=== PATIENT | female | born 1960 | race Caucasian/White ===

== ENCOUNTER → 2019-01-19 | Outpatient (CLI) | payer BC ==
--- NOTE | 2019-01-22 08:36 | BD ---
EXAMINATION TYPE: Axial Bone Density DATE OF EXAM: 01/19/2019 COMPARISON: NONE CLINICAL HISTORY: Postmenopausal female Height: 65.5 Weight: 144.4 FRAX RISK QUESTIONS: Alcohol (3 or more units per day): no Family History (Parent hip fracture): no Glucocorticoids (More than 3mos): no (Ex: prednisone, prednisolone, methylprednisolone, dexamethasone, and hydrocortisone). History of Fracture in Adulthood: yes Secondary Osteoporosis: 1. Type 1 Diabetes: no 2. Hyperthyroidism: no 3. Menopause before 45: no 4. Malnutrition: no 5. Chronic liver disease: no Rheumatoid Arthritis: no Current Tobacco Use: yes RISK FACTORS HISTORY OF: Family History of Osteoporosis: no Active: yes Diet low in dairy products/other sources of calcium: no Postmenopausal woman: 46 MEDICATIONS: Lipitor, lisinopril, Additional History: EXAM MEASUREMENTS: Bone mineral densitometry was performed using the [employer] System. Bone mineral density as measured about the Lumbar spine is: ----- L1-L4(G/cm2): 1.001 T Score Values are as follows: ----- L2: -2.9 ----- L3: -1.3 ----- L4: -0.1 ----- L1-L4: -1.5 Bone mineral density : baseline Bone mineral density about the R hip (g/cm2): 0.767 Bone mineral density about the L hip (g/cm2): 0.752 T Score values are as follows: -----R Neck: -2.0 -----L Neck: -2.1 -----R Total: -1.5 -----L Total: -1.4 Bone mineral density : baseline IMPRESSION: Osteopenia (T Score between -2.5 and -1). There is slightly increased risk of fracture and the patient may be considered for treatment. Re-Screen 2-5 years. NOTE: T-SCORE=SD OF THE YOUNG ADULT MEAN.
--- NOTE | 2019-01-23 10:56 | MM ---
Reason for exam: screening (asymptomatic). Last mammogram was performed 5 years and 7 months ago. History: Patient is postmenopausal. Physical Findings: A clinical breast exam by your physician is recommended on an annual basis and results should be correlated with mammographic findings. MG Screening Mammo w CAD Bilateral CC and MLO view(s) were taken. Prior study comparison: June 14, 2013, bilateral digital screening mammo w/CAD. September 09, 2003, left breast special view mammogram. The breast tissue is heterogeneously dense. This may lower the sensitivity of mammography. No suspicious abnormality. No significant changes when compared with prior studies. ASSESSMENT: Negative, BI-RAD 1 RECOMMENDATION: Routine screening mammogram of both breasts in 1 year.
== END ==
LOC: RADMAMWWP 15:01
PROVIDERS: ATTEND Family Medicine
DX: Z12.31 Encounter for screening mammogram for malignant neoplasm of breast (principal); M85.80 Other specified disorders of bone density and structure, unspecified site; N95.1 Menopausal and female climacteric states; Z80.3 Family history of malignant neoplasm of breast
CPT/HCPCS: 77067; 77080

== ENCOUNTER → 2021-01-23 | Outpatient (CLI) | payer BC ==
--- NOTE | 2021-01-23 14:40 | BD ---
EXAMINATION TYPE: Axial Bone Density DATE OF EXAM: 01/23/2021 COMPARISON: 01/19/2019 CLINICAL HISTORY: Height: 64.5 IN Weight: 137 LBS FRAX RISK QUESTIONS: Current Tobacco Use: YES RISK FACTORS HISTORY OF: Active: YES Diet low in dairy products/other sources of calcium: YES Postmenopausal woman: AGE 49 MEDICATIONS: Additional Medications: CALCIUM, VIT D, LISINOPRIL,ASPIRIN, MULTI VIT, VIT C, RED RICE YEAST, MAGNESI UM, PROBIOTIC, MORE X OIL EXAM MEASUREMENTS: Bone mineral densitometry was performed using the [employer] System. Bone mineral density as measured about the Lumbar spine is: ----- L1-L4(G/cm2): 0.968 T Score Values are as follows: ----- L2: -3.0 ----- L3: -1.6 ----- L4: -0.7 ----- L1-L4: -1.8 Bone mineral density has: Decreased -3.9% since study of: 01/19/2019 Bone mineral density about the R hip (g/cm2): 0.696 Bone mineral density about the L hip (g/cm2): 0.709 T Score values are as follows: -----R Neck: -2.5 -----L Neck: -2.4 -----R Total: -1.9 -----L Total: -1.8 Bone mineral density has: Decreased -6.3% since study of: 01/19/2019 IMPRESSION: Osteopenia (T Score between -2.5 and -1). There is slightly increased risk of fracture and the patient may be considered for treatment. Re-Screen 2-5 years. NOTE: T-SCORE=SD OF THE YOUNG ADULT MEAN.
== END | disposition home or self-care (01) ==
LOC: RADBDWWP 09:12
PROVIDERS: ATTEND Family Medicine
DX: Z12.31 Encounter for screening mammogram for malignant neoplasm of breast (principal); M85.80 Other specified disorders of bone density and structure, unspecified site; Z78.0 Asymptomatic menopausal state
CPT/HCPCS: 77080

== ENCOUNTER → 2021-02-09 | Outpatient (CLI) | payer BC ==
--- NOTE | 2021-02-11 09:57 | MM ---
Reason for exam: screening (asymptomatic). Last mammogram was performed 2 years and 1 month ago. History: Patient is postmenopausal. Physical Findings: A clinical breast exam by your physician is recommended on an annual basis and results should be correlated with mammographic findings. MG Screening Mammo w CAD Bilateral CC and MLO view(s) were taken. Prior study comparison: January 19, 2019, bilateral MG screening mammo w CAD. June 14, 2013, bilateral digital screening mammo w/CAD. There are scattered fibroglandular densities. No significant changes when compared with prior studies. ASSESSMENT: Benign, BI-RAD 2 RECOMMENDATION: Routine screening mammogram of both breasts in 1 year.
== END | disposition home or self-care (01) ==
LOC: RADMAMWWP 07:30
PROVIDERS: ATTEND Family Medicine
DX: Z12.31 Encounter for screening mammogram for malignant neoplasm of breast (principal); Z78.0 Asymptomatic menopausal state
CPT/HCPCS: 77067

== ENCOUNTER → 2023-01-27 | Outpatient (CLI) | payer BC ==
--- NOTE | 2023-01-27 15:48 | CTL ---
EXAMINATION TYPE: CT Low Dose Lung DATE OF EXAM ORDERED: 01/27/2023 HISTORY: Z12.2 ENCNTR SCREEN FOR MALIGNANT NEOPLASM F17.210. Lung cancer screening. Current smoker, [address] DLP: 75.[address] CTDI: 2.3 mGy Automated exposure control for dose reduction was used. SCREENING VISIT: First screening visit COMPARISON: None TECHNIQUE: Low dose computed tomography scan was performed through the chest at 1 mm thick sections a nd reconstructed images in multiple planes at 1 mm and [address] DIAGNOSTIC QUALITY: Satisfactory FINDINGS: LUNG NODULES: No clinically significant pulmonary nodules. LUNGS: COPD: Severity: Minimal Fibrosis: Severity: None Lymph nodes: Precarinal 1.1 cm short axis lymph node. Other findings: None RIGHT PLEURAL SPACE: Effusion: None Calcification: None Thickening: None Pneumothorax: None LEFT PLEURAL SPACE: Effusion: None Calcification: None Thickening: None Pneumothorax: None HEART: Heart Size: Mildly Enlarged Coronary Calcification: None Pericardial Effusion: None OTHER FINDINGS: Upper abdomen: None Bony thorax: Mild degenerative changes of the thoracic spine. Supraclavicular region: None Other: None IMPRESSION: 1. No clinically significant pulmonary nodules. 2. Nonspecific mildly enlarged precarinal lymph node. Attention on follow-up exam. CT LUNG RAD AND CT CHEST RECOMMENDATION: Lung-Rad 1 Negative: Continue annual screening with LDCT in 12 months.
== END | disposition home or self-care (01) ==
LOC: RADCTMAIN 15:16
PROVIDERS: ATTEND Family Medicine
DX: Z12.2 Encounter for screening for malignant neoplasm of respiratory organs (principal); F17.210 Nicotine dependence, cigarettes, uncomplicated; R91.8 Other nonspecific abnormal finding of lung field
CPT/HCPCS: 71271

== ENCOUNTER → 2023-02-23 | Outpatient (CLI) | payer BC ==
--- NOTE | 2023-02-24 11:31 | MM ---
Reason for Exam: Screening (asymptomatic). Last mammogram was performed 2 year(s) and 0 month(s) ago. Patient History: Menarche at age 16. First Full-Term at age 19. Postmenopausal. Risk Values: Madeline 5 year model risk: 1.0%. NCI Lifetime model risk: 4.7%. Prior Study Comparison: 06/14/2013 Bilateral Screening Mammogram, [facility]. 01/19/2019 Bilateral Screening Mammogram, [facility]. 02/09/2021 Bilateral Screening Mammogram, [facility]. Tissue Density: There are scattered fibroglandular densities. Findings: Analyzed By CAD. There is no suspicious group of microcalcifications or new suspicious mass in either breast. Overall Assessment: Negative, BI-RAD 1 Management: Screening Mammogram of both breasts in 1 year. . Patient should continue monthly self-breast exams. A clinical breast exam by your physician is recommended on an annual basis. This exam should not preclude additional follow-up of suspicious palpable abnormalities. Note on Madeline scores and lifetime risk: 1. A Madeline score greater than 3% is considered moderate risk. If this is the case, consider specialist referral to assess eligibility for a risk reducing agent. 2. If overall lifetime risk for the development of breast cancer is 20% or higher, the patient may qualify for future screening with alternating mammogram and breast MRI. Electronically signed and approved by: Kalpesh Mirza M.D. Radiologis
--- NOTE | 2023-02-24 13:18 | BD ---
EXAMINATION TYPE: Axial Bone Density DATE OF EXAM: 02/23/2023 CLINICAL HISTORY: 62 years old Female. ICD-10 CODE: Z78.0 MENOPAUSE Height: 64 Weight: 146 FRAX RISK QUESTIONS: Family History (Parent hip fracture): no History of Fracture in Adulthood: yes, lt wrist, rt elbow , rt ribs Secondary Osteoporosis: no Current Tobacco Use: yes RISK FACTORS HISTORY OF: History of Wrist Fracture: yes lt When: 07/2022 Surgery to Wrist (left): yes When: 07/2022 Family History of Osteoporosis: no Active: yes Diet low in dairy products/other sources of calcium: no Postmenopausal woman: yes Lost more than 2 inches in height since high school: no Frequent falls: no MEDICATIONS: Additional Medications: yes [facility] EXAM MEASUREMENTS: Bone mineral densitometry was performed using the [employer] System. Bone mineral density as measured about the Lumbar spine is: ----- L1-L4(G/cm2): 1.034 T Score Values are as follows: ----- L1: -2.0 ----- L2: -1.8 ----- L3: -0.4 ----- L4: -1.0 ----- L1-L4: -1.2 Z Score Values are as follows: ----- L1: -0.7 ----- L2: -0.5 ----- L3: 0.9 ----- L4: 0.4 ----- L1-L4: 0.1 Bone mineral density has: Increased 6.8% since study of: 01/23/2021 Bone mineral density about the R hip (g/cm2): 0.791 Bone mineral density about the L hip (g/cm2): 0.770 T Score values are as follows: -----R Neck: -2.3 -----L Neck: -2.3 -----R Total: -1.7 -----L Total: -1.9 Z Score values are as follows: -----R Neck: -1.0 -----L Neck: -1.0 -----R Total: -0.7 -----L Total: -0.9 Bone mineral density has: Increased 1.0% since study of: 01/23/2021 FRAX%s: The graph provided illustrates a 20.1% chance for a major osteoporotic fx and a 5.9% chance f or the hips probability for fx in 10 years time. IMPRESSION: Osteopenia (T Score between -2.5 and -1). There is slightly increased risk of fracture and the patient may be considered for treatment. Re-Screen 2-5 years. NOTE: T-SCORE=SD OF THE YOUNG ADULT MEAN.
== END | disposition home or self-care (01) ==
LOC: RADMAMWWP 15:20
PROVIDERS: ATTEND Family Medicine
DX: Z12.31 Encounter for screening mammogram for malignant neoplasm of breast (principal); M85.89 Other specified disorders of bone density and structure, multiple sites; Z78.0 Asymptomatic menopausal state
CPT/HCPCS: 77067; 77080

== ENCOUNTER → 2024-03-15 | Outpatient (CLI) | payer BC ==
--- NOTE | 2024-03-20 08:13 | MM ---
Reason for Exam: Screening (asymptomatic). Last mammogram was performed 1 year(s) and 1 month(s) ago. Patient History: Menarche at age 16. First Full-Term at age 19. Postmenopausal. Patient has history of breast feeding. Risk Values: Madeline 5 year model risk: 1.0%. NCI Lifetime model risk: 4.6%. Prior Study Comparison: 01/19/2019 Bilateral Screening Mammogram, [facility]. 02/09/2021 Bilateral Screening Mammogram, [facility]. 02/23/2023 Bilateral MG screening mammo w CAD, [facility]. Tissue Density: There are scattered areas of fibroglandular density. Findings: Analyzed By CAD. There is no suspicious group of microcalcifications or new suspicious mass in either breast. Overall Assessment: Benign, BI-RAD 2 Management: Screening Mammogram of both breasts in 1 year. . Patient should continue monthly self-breast exams. A clinical breast exam by your physician is recommended on an annual basis. This exam should not preclude additional follow-up of suspicious palpable abnormalities. Note on Madeline scores and lifetime risk: 1. A Madeline score greater than 3% is considered moderate risk. If this is the case, consider specialist referral to assess eligibility for a risk reducing agent. 2. If overall lifetime risk for the development of breast cancer is 20% or higher, the patient may qualify for future screening with alternating mammogram and breast MRI. [facility], , 03/20/2024 8:10 AM. Electronically signed and approved by: Triston Rangel M.D. Radiologis
== END | disposition home or self-care (01) ==
LOC: RADMAMWWP 16:08
PROVIDERS: ATTEND Family Medicine
DX: Z12.31 Encounter for screening mammogram for malignant neoplasm of breast (principal); Z78.0 Asymptomatic menopausal state; R92.323 Mammographic fibroglandular density, bilateral breasts
CPT/HCPCS: 77067

== ENCOUNTER 2024-03-25 12:19 | Inpatient (IN) | payer BC ==
--- NOTE | 2024-03-25 12:37 | ED ---
General Adult HPI - General Source: patient, RN notes reviewed Mode of arrival: ambulatory Limitations: no limitations <Gely Covington - Last Filed: 03/25/24 12:36> <Biju Quiroz - Last Filed: 03/25/24 14:59> - General Chief complaint: Neuro Symptoms/Deficit Stated complaint: L arm numbness Time Seen by Provider: 03/25/24 12:30 - History of Present Illness Initial comments: Quick note: 63-year-old female presents to the emergency department for evaluation of elevated blood pressure readings and paresthesias to the left arm. Denies chest pain, shortness of breath. Denies headache. History of TIA. (Gely Covington) Dictation was produced using [employer] dictation software. please excuse any grammatical, word or spelling errors. Chief Complaint: 63-year-old female presents with left arm numbness History of Present Illness: Patient 63-year-old female since Tuesday she has been having episodes of left arm numbness. States that today and left arm numbness became more apparent. States that is not fully numb but more like she has diminished touch. States that she checked her blood pressure was found to be significantly elevated with systolic blood pressures exceeding 200. Patient has history of hypertension. She takes hypertensive medications. She does have a mild headache. Denies that this is the worst headache of her life. Patient also complaining of having had some visual disturbances with episodes of what she describes as blurry vision. Denies any vision changes at the bedside. The ROS documented in this emergency department record has been reviewed and con firmed by me. Those systems with pertinent positive or negative responses have been documented in the HPI. All other systems are other negative and/or noncontributory. (Biju Quiroz) - Related Data Home Medications Medication Instructions Recorded Confirmed Aspirin EC [Ecotrin] 325 mg PO DAILY 03/25/24 03/25/24 Beets Supplement 1 tab PO DAILY 03/25/24 03/25/24 Calcium Carbonate/Vitamin D3 1 tab PO DAILY 03/25/24 03/25/24 [Calcium 600 mg-Vit D3 5 mcg (200 unit)] Yennifer 500 mg PO DAILY 03/25/24 03/25/24 Magnesium Oxide [Mag-Ox] 400 mg PO DAILY 03/25/24 03/25/24 Red Yeast Rice 600 mg PO DAILY 03/25/24 03/25/24 Turmeric Root Extract [Turmeric] 500 mg PO DAILY 03/25/24 03/25/24 lisinopriL [Zestril] 10 mg PO HS 03/25/24 03/25/24 lisinopriL [Zestril] 20 mg PO DAILY 03/25/24 03/25/24 Allergies Allergy/AdvReac Type Severity Reaction Status Date / Time No Known Allergies Allergy Verified 03/25/24 13:33 Review of Systems ROS Other: All systems not noted in ROS Statement are negative. <Gely Covington - Last Filed: 03/25/24 12:36> ROS Other: All systems not noted in ROS Statement are negative. <Biju Quiroz - Last Filed: 03/25/24 14:59> ROS Statement: Those systems with pertinent positive or pertinent negative responses have been documented in the HPI. Past Medical History Past Medical History: CVA/TIA, Hyperlipidemia, Hypertension History of Any Multi-Drug Resistant Organisms: None Reported Past Surgical History: No Surgical Hx Reported Past Psychological History: No Psychological Hx Reported Smoking Status: Current every day smoker Past Alcohol Use History: None Reported Past Drug Use History: None Reported <Gely Covington - Last Filed: 03/25/24 12:36> General Exam Limitations: no limitations <Gely Covington - Last Filed: 03/25/24 12:36> <Biju Quiroz - Last Filed: 03/25/24 14:59> - General Exam Comments Initial Comments: Visual Physical Exam Vital signs reviewed General: Well-appearing, nontoxic, no acute distress. Head: Normocephalic, atraumatic Eyes: PERRLA, EOMI ENT: Airway patent Chest: Nonlabored breathing Skin: No visual rash, normal skin tone Neuro: Alert and oriented 3 Musculoskeletal: No gross abnormalities (Gely Covington) PHYSICAL EXAM: General Impression: Alert and oriented x3, not in acute distress HEENT: Normocephalic atraumatic, extra-ocular movements intact, pupils equal and reactive to light bilaterally, mucous membranes moist. Cardiovascular: Heart regular rate and rhythm Chest: Able to complete full sentences, no retractions, no tachypnea Abdomen: abdomen soft, non-tender, non-distended, no organomegaly Musculoskeletal: Pulses present and equal in all extremities, no peripheral edema Motor: no focal deficits noted Neurological: CN II-XII grossly intact, no focal motor deficits noted diminished sensation to light touch of the left arm from the fingertips to the elbow Skin: Intact with no visualized rashes Psych: Normal affect and mood (Biju Quiroz) Course Vital Signs 03/25/24 03/25/24 12:23 13:13 Temperature 97.3 F L 97.8 F Pulse Rate 82 68 Respiratory 20 18 Rate Blood Pressure 228/119 187/98 O2 Sat by Pulse 98 97 Oximetry EKG Findings - EKG Comments: EKG Findings:: My EKG interpretation: Ventricular rate 68, sinus rhythm,. #186, QRS 92, QTc 408. No WA prolongation, no QTC prolongation, no ST or T-wave changes noted. Overall, this EKG is unremarkable <Biju Quiroz - Last Filed: 03/25/24 14:59> Medical Decision Making <Gely Covington - Last Filed: 03/25/24 12:36> - Lab Data Result diagrams: 03/25/24 13:28 03/25/24 13:28 <Biju Quiroz - Last Filed: 03/25/24 14:59> - Medical Decision Making Quick note preformed and electronically signed by Gely Covington PA-C (Gely Covington) Was pt. sent in by a medical professional or institution (NATASHA Powell, AIR POLLUTION ANALYST, urgent care, hospital, or chcf...) When possible be specific @ -No Did you speak to anyone other than the patient for history (EMS, parent, family, police, friend...)? What history was obtained from this source @ -No Did you review nursing and triage notes (agree or disagree)? Why? @ -I reviewed and agree with nursing and triage notes Were old charts reviewed (outside hosp., previous admission, EMS record, old EKG, old radiological studies, urgent care reports/EKG's, chcf records)? Report findings @ -No old charts were reviewed Differential Diagnosis (chest pain, altered mental status, abdominal pain women, abdominal pain men, vaginal bleeding, musculoskeletal, weakness, fever, dyspnea, syncope, headache, dizziness, GI bleed, back pain, seizure, CVA, palpatations, mental health)? @ - Differential CVA: Ischemic stroke, hemorrhagic stroke, brain tumor, atypical migraine, Wernicke's encephalopathy, seizure, multiple sclerosis, meningitis, encephalitis, hypoglycemia, Guillain-Baker, electrolytes disturbance, myasthenia gravis.... This is not meant to be an all-inclusive list EKG interpreted by me (3pts min.). @ -See above X-rays interpreted by me (1pt min.). @ -Chest x-ray shows no acute processes CT interpreted by me (1pt min.). @ -CT brain and CT angiography shows no acute processes U/S interpreted by me (1pt. min.). @ -None done What testing was considered but not performed or refused? (CT, X-rays, U/S, labs)? Why? @ -None What meds were considered but not given or refused? Why? @ -None Was smoking cessation discussed for >3mins.? @ -No Were there social determinants of health that impacted care today? How? (Homelessness, low income, unemployed, alcoholism, drug addiction, transportation, low edu. Level, literacy, decrease access to med. care, fdc, rehab)? @ -No Was there de-escalation of care discussed even if they declined (Discuss DNR or withdrawal of care, Hospice)? DNR status @ -No What co-morbidities impacted this encounter? (DM, HTN, Smoking, COPD, CAD, Cancer, CVA, ARF, Chemo, Hep., AIDS, mental health diagnosis, sleep apnea, morbid obesity)? @ -History of TIA Was patient admitted / discharged? Hospital course, mention meds given and route , prescriptions, significant lab abnormalities, going to OR and other pertinent info. @ -63-year-old female presents to the emergency department strokelike symptoms. Vital signs upon arrival shows hypertension. Patient given NIH of 1 she is outside the window for any aggressive treatments given the duration of her symptoms. Therefore risk outweigh the benefits. Laboratory evaluation is unremarkable. Imaging studies are negative. Patient given aspirin will be admitted with consultation to neurology. Case discussed with hospitalist for admission Did you discuss the management of the patient with other professionals (professionals i.e. , PA, AIR POLLUTION ANALYST, lab, RT, psych nurse, social media coordinator, telecom analyst, teacher, chief human resources officer, case finisher)? Give summary @ -No Was critical care preformed (if so, how long)? @ -No Undiagnosed new problem with uncertain prognosis? @ -No Drug Therapy requiring intensive monitoring for toxicity (Heparin, Nitro, Insulin, Cardizem)? @ -No Were any procedures done? @ -No Diagnosis/symptom? Acute, or Chronic, or Acute on Chronic? Uncomplicated (without systemic symptoms) or Complicated (systemic symptoms)? @ -CVA Side effects of treatment? @ -No Exacerbation, Progression, or Severe Exacerbation? @ -No Poses a threat to life or bodily function? How? (Chest pain, USA, CT, pneumonia, PE, COPD, DKA, ARF, appy, cholecystitis, CVA, Diverticulitis, Homicidal, Suicidal, threat to staff... and all critical care pts) @ -yes (Biju Quiroz) - Lab Data Lab Results 03/25/24 03/25/24 03/25/24 Range/Units 13:28 13:28 13:28 WBC 9.0 (3.8-10.6) k/uL RBC 4.61 (3.80-5.40) m/uL Hgb 13.6 (11.4-16.0) gm/dL Hct 41.0 (34.0-46.0) % MCV 88.9 (80.0-100.0) fL MCH 29.5 (25.0-35.0) pg MCHC 33.2 (31.0-37.0) g/dL RDW 12.4 (11.5-15.5) % Plt Count 419 (150-450) k/uL MPV 6.6 Neutrophils % 61 % Lymphocytes % 28 % Monocytes % 5 % Eosinophils % 4 % Basophils % 1 % Neutrophils # 5.5 (1.3-7.7) k/uL Lymphocytes # 2.5 (1.0-4.8) k/uL Monocytes # 0.5 (0-1.0) k/uL Eosinophils # 0.3 (0-0.7) k/uL Basophils # 0.0 (0-0.2) k/uL PT 9.9 L (10.0-12.5) sec INR 0.9 (<1.2) APTT 26.0 (22.0-30.0) sec Sodium 140 (137-145) mmol/L Potassium 4.2 (3.5-5.1) mmol/L Chloride 102 (98-107) mmol/L Carbon Dioxide 25 (22-30) mmol/L Anion Gap 13 mmol/L BUN 18 H (7-17) mg/dL Creatinine 0.53 (0.52-1.04) mg/dL Est GFR (CKD-EPI)AfAm >90 (>60 ml/min/1.73 sqM) Est GFR (CKD-EPI)NonAf >90 (>60 ml/min/1.73 sqM) Glucose 86 (74-99) mg/dL Calcium 10.4 H (8.4-10.2) mg/dL Magnesium 2.0 (1.6-2.3) mg/dL Total Bilirubin 0.6 (0.2-1.3) mg/dL AST 25 (14-36) U/L ALT 23 (4-34) U/L Alkaline Phosphatase 157 H (38-126) U/L Troponin I (0.000-0.034) ng/mL Total Protein 8.1 (6.3-8.2) g/dL Albumin 4.8 (3.5-5.0) g/dL 03/25/ Range/Units 13:28 WBC (3.8-10.6) k/uL RBC (3.80-5.40) m/uL Hgb (11.4-16.0) gm/dL Hct (34.0-46.0) % MCV (80.0-100.0) fL MCH (25.0-35.0) pg MCHC (31.0-37.0) g/dL RDW (11.5-15.5) % Plt Count (150-450) k/uL MPV Neutrophils % % Lymphocytes % % Monocytes % % Eosinophils % % Basophils % % Neutrophils # (1.3-7.7) k/uL Lymphocytes # (1.0-4.8) k/uL Monocytes # (0-1.0) k/uL Eosinophils # (0-0.7) k/uL Basophils # (0-0.2) k/uL PT (10.0-12.5) sec INR (<1.2) APTT (22.0-30.0) sec Sodium (137-145) mmol/L Potassium (3.5-5.1) mmol/L Chloride (98-107) mmol/L Carbon Dioxide (22-30) mmol/L Anion Gap mmol/L BUN (7-17) mg/dL Creatinine (0.52-1.04) mg/dL Est GFR (CKD-EPI)AfAm (>60 ml/min/1.73 sqM) Est GFR (CKD-EPI)NonAf (>60 ml/min/1.73 sqM) Glucose (74-99) mg/dL Calcium (8.4-10.2) mg/dL Magnesium (1.6-2.3) mg/dL Total Bilirubin (0.2-1.3) mg/dL AST (14-36) U/L ALT (4-34) U/L Alkaline Phosphatase (38-126) U/L Troponin I <0.012 (0.000-0.034) ng/mL Total Protein (6.3-8.2) g/dL Albumin (3.5-5.0) g/dL Disposition <Gely Covington - Last Filed: 03/25/24 12:36> Decision Time: 14:59 <Biju Quiroz - Last Filed: 03/25/24 14:59> Clinical Impression: Cerebrovascular accident (CVA) Disposition: ADMITTED IP TO THIS HOSP Condition: Fair Referrals: Mirna Rick DO [Primary Care Provider] - 1-2 days
[2024-03-25 13:44] LABS: Basophils % (A) 1 %; Eosinophils # (A) 0.3 k/uL (0-0.7); Eosinophils % (A) 4 %; HGB 13.6 gm/dL (11.4-16.0); Lymphocytes # (A) 2.5 k/uL (1.0-4.8); Lymphocytes % (A) 28 %; MCH 29.5 pg (25.0-35.0); MCHC 33.2 g/dL (31.0-37.0); MCV 88.9 fL (80.0-100.0); Mean Platelet Volume 6.6; Monocytes # (A) 0.5 k/uL (0-1.0); Monocytes % (A) 5 %; Neutrophils # (A) 5.5 k/uL (1.3-7.7); Neutrophils % (A) 61 %; Platelet Count 419 k/uL (150-450); RBC 4.61 m/uL (3.80-5.40); RDW 12.4 % (11.5-15.5)
[2024-03-25 13:53] LABS: ALT 23 U/L (4-34); AST 25 U/L (14-36); African American GFR (CKD) >90 (>60 ml/min/1.73 sqM); Albumin 4.8 g/dL (3.5-5.0); Alkaline Phosphatase 157 U/L (38-126); Anion Gap 13 mmol/L; Blood Urea Nitrogen 18 mg/dL (7-17); Calcium 10.4 mg/dL (8.4-10.2); Carbon Dioxide 25 mmol/L (22-30); Chloride 102 mmol/L (98-107); Glucose 86 mg/dL (74-99); Non-African American GFR(CKD) >90 (>60 ml/min/1.73 sqM); Potassium 4.2 mmol/L (3.5-5.1); Sodium 140 mmol/L (137-145); Total Bilirubin 0.6 mg/dL (0.2-1.3); Total Protein 8.1 g/dL (6.3-8.2)
[2024-03-25 13:59] LABS: INR 0.9 (<1.2); Prothrombin Time 9.9 sec (10.0-12.5)
--- NOTE | 2024-03-25 14:21 | CT ---
EXAMINATION TYPE: CT brain wo con DATE OF EXAM: 03/25/2024 1:58 PM COMPARISON: 06/01/2012. CLINICAL INDICATION: Female, 63 years old with history of stroke symptoms, LEFT SIDED WEAKNESS TECHNIQUE: Brain: Axial CT images of the brain were obtained with coronal and sagittal reformats created and rev iewed. Contrast used: None. Oral contrast used: None. CT DLP: 1091 mGycm, Automated exposure control for dose reduction was used. FINDINGS: Brain: Extra-axial spaces: No abnormal extra-axial fluid collections. Ventricular system: Dilatation in proportion to cerebral atrophy. Cerebral parenchyma: Stable right caudate nucleus injury. Left caudate nucleus injury from 2012. No a cute intraparenchymal hemorrhage or mass effect. The jaimes-white junction is well differentiated. Sca ttered hypoattenuating areas are seen within the white matter. Cerebellum: Unremarkable. Mass effect: No evidence of midline shift. Intracranial vasculature: unremarkable Soft tissues: Normal. Calvarium/osseous structures: No depressed skull fracture. Paranasal sinuses and mastoid air cells: Mild scattered paranasal sinus disease. Visualized orbits: Orbital contents are intact. IMPRESSION: 1. No acute intracranial process. 2. Nonspecific white matter changes, likely secondary to chronic small vessel ischemic disease. 3. Stable right caudate nucleus injury, new from 2012 left caudate nucleus injury. [facility], , 03/25/2024 2:18 PM
--- NOTE | 2024-03-25 14:23 | XR ---
EXAMINATION TYPE: XR chest 2V DATE OF EXAM: 03/25/2024 1:58 PM COMPARISON: None CLINICAL INDICATION: Female, 63 years old with history of htn; PHH TECHNIQUE: XR chest 2V Frontal and lateral views of the chest. FINDINGS: Lungs/Pleura: There is no evidence of pleural effusion, focal consolidation, or pneumothorax. Pulmonary vascularity: Unremarkable. Heart/mediastinum: Cardiomediastinal silhouette is unremarkable. Musculoskeletal: No acute osseous pathology. IMPRESSION: No acute cardiopulmonary disease/process. [facility], , 03/25/2024 2:20 PM
--- NOTE | 2024-03-25 14:26 | CT ---
EXAMINATION TYPE: CT angio head neck DATE OF EXAM: 03/25/2024 1:58 PM COMPARISON: CT brain same day. CLINICAL INDICATION: Female, 63 years old with history of neurologic defecit; PHH, LEFT SIDED WEAKNES S TECHNIQUE: Axially acquired helical CT angiogram of the head and neck was obtained with contrast. Axi al images are supplemented with 3D reconstructions and MIP images which were post-processed at an in dependent workstation. NASCET criteria used. Contrast used:65 mL of Isovue 370 with IV Contrast, Oral contrast used: None. CT DLP: 369.6 mGycm, Automated exposure control for dose reduction was used. FINDINGS: CTA HEAD: No evidence of acute intracranial hemorrhage, mass effect, or midline shift. The ventricles, sulci, a nd cisterns are unremarkable. Vertebral arteries: The vertebral arteries are patent. Vertebral artery dominance: Codominant Basilar artery: The basilar artery is intact. The basilar artery bifurcation is normal. Internal Carotid arteries: The cervical, petrous, cavernous and supraclinoid segments are normal. RYAN: Patent with no evidence of aneurysm. ACOM: Present without evidence of aneurysm. MCA: Patent with no evidence of aneurysm. [employer]: Patent with no evidence of aneurysm. PCOM: Hypoplastic bilaterally. Dural sinuses: Patent. CTA NECK: Right Carotid System: The common carotid artery and external carotid artery are patent. The carotid bifurcation demonstrate s no evidence of hemodynamically significant stenosis. The remaining portions of the internal carotid artery demonstrate normal size without significant narrowing. Left Carotid System: The common carotid artery and external carotid artery are patent. The carotid bifurcation demonstrate s no evidence of hemodynamically significant stenosis. The remaining portions of the internal carotid artery demonstrate normal size without significant narrowing. Vertebral arteries are patent without evidence hemodynamically significant stenosis. There is a 4-vessel aortic arch. The origins of the great vessels are patent. No evidence of hemodyna mically significant stenosis. IMPRESSION: 1. No Evidence Of Dissection Of The Cervical Internal Carotid Arteries Or Vertebral Arteries. 2. No Any Evidence Of Significant Stenosis At The Carotid Bifurcations. 3. No Evidence Of Intracranial High-Grade Stenosis Or Intracranial Aneurysm. [facility], , 03/25/2024 2:24 PM
[2024-03-25] MEDS ORDERED: NALOXONE 0.4 MG/ML 1 ML VIAL IV PRN (14:38)
[2024-03-25] MEDS: lisinopriL 20 MG TAB PO SCH (16:20)
[2024-03-25] MEDS: ASPIRIN 81 MG PO STA (16:20)
[2024-03-25] MEDS: NICOTINE 14MG/24HR PATCH TRANSDERM SCH (20:52)
[2024-03-25] MEDS: HEPARIN SODIUM,PORCINE 5,000 UNIT/ML 1 ML VIAL SQ SCH (22:48)
[2024-03-25] MEDS: lisinopriL 10 MG TAB PO SCH (22:48)
[2024-03-26] MEDS: MAGNESIUM OXIDE 400 MG TAB PO SCH (08:19)
--- NOTE | 2024-03-26 09:10 | HP ---
HISTORY AND PHYSICAL CHIEF COMPLAINT: Numbness of the left arm. HISTORY OF PRESENT ILLNESS: This is a 63-year-old woman with a past medical history of CVA, TIA, hypertension, and hyperlipidemia, being followed by . The patient is complaining of some paresthesia of the left arm and coldness. The patient walking, the patient . Initial workup was negative for stroke. There is no history of fever, rigors, or chills at this time. PAST MEDICAL HISTORY: History of CVA, TIA, hypertension, hyperlipidemia. Rest of the history in chart is also reviewed. HOME MEDICATIONS: Reviewed include Zestril. Dose and rest of medications reviewed. ALLERGIES: None. FAMILY HISTORY: No history of heart disease or strokes in the family. SOCIAL HISTORY: History of smoking. REVIEW OF SYSTEMS: Fourteen-point review of systems negative except as mentioned earlier. PHYSICAL EXAMINATION: VITAL SIGNS: Pulse is 68, blood pressure 187/90, respirations 18. HEENT: Conjunctivae normal. RESPIRATIONS: No rhonchi. No crackles. ABDOMEN: Soft. LEGS: No edema. NERVOUS SYSTEM: Cranial nerves normal. Moves all 4 limbs. No signs of cerebellar incoordination. No weakness. LABORATORY DATA: Noted. ASSESSMENT: 1. Numbness of the left arm, possible acute transient ischemic attack. Rule out acute stroke. 2. Accelerated hypertension. 3. Hyperlipidemia. 4. History of cerebrovascular accident. 5. continued ongoing nicotine dependence. RECOMMENDATION: This 63-year-old woman presented with multiple complex medical issues. We will monitor the patient closely. Continue the current medications, symptomatic treatment. Otherwise, neurology consultation. Resume the home medications once they are confirmed. Otherwise, we will continue the antiplatelet agents, neurology consultation, and complete neurovascular workup. Guarded prognosis. Further recommendations to follow. MMODL / IJN: [id number] / MTDD
--- NOTE | 2024-03-26 14:37 | P.CNNES ---
History of Present Illness Consult date: 03/26/24 Requesting physician: Biju Quiroz Reason for Consult: stroke symptoms History of Present Illness: This is a 64-year-old woman who present emergency department because of left forearm hand numbness and tingling. Patient stated that her symptoms began Tuesday morning and she is unsure if this occurred while waking up or happen later in the morning. She stated that she is having numbness tingling from the left elbow all the way down to the fingertips. She also noted when she was walking she was swaying to the right. Otherwise she denies any visual disturbance, weakness, difficulty getting her words out. She did have 1-2 times of TIA she knows 1 event happened in 2012 and she had right sided weakness. Loulou romeo takes aspirin 325 mg daily. She does smoke cigarettes and she smokes 1 to 6 cigarettes daily in the past she was more smoking up to 10 cigarettes daily. She does have underlying history of hypertension and she stated her blood pressure is not controlled. Some of the workup during this hospital visit consisted of: I reviewed the lab test. CT of the head is reported as no acute intracranial process. 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 I personally reviewed the CT and I agree there is no appreciable acute or subacute stroke but I feel the patient has bilateral lacunar stroke over the basal ganglia CT Angiography of the head and neck is reported as no evidence of dissection of cervical internal carotid artery or vertebral artery. No evidence of any significant stenosis at the carotid bifurcation. No evidence of intracranial high-grade stenosis or intracranial aneurysm. Review of Systems As per HPI. Past Medical History Past Medical History: CVA/TIA, Hyperlipidemia, Hypertension History of Any Multi-Drug Resistant Organisms: None Reported Past Surgical History: No Surgical Hx Reported Past Psychological History: No Psychological Hx Reported Smoking Status: Current every day smoker Past Alcohol Use History: None Reported Past Drug Use History: None Reported Medications and Allergies Home Medications Medication Instructions Recorded Confirmed Type Aspirin EC [Ecotrin] 325 mg PO DAILY 03/25/24 03/25/24 History Beets Supplement 1 tab PO DAILY 03/25/24 03/25/24 History Calcium Carbonate/Vitamin D3 1 tab PO DAILY 03/25/24 03/25/24 History [Calcium 600 mg-Vit D3 5 mcg (200 unit)] Yennifer 500 mg PO DAILY 03/25/24 03/25/24 History Magnesium Oxide [Mag-Ox] 400 mg PO DAILY 03/25/24 03/25/24 History Red Yeast Rice 600 mg PO DAILY 03/25/24 03/25/24 History Turmeric Root Extract [Turmeric] 500 mg PO DAILY 03/25/24 03/25/24 History lisinopriL [Zestril] 10 mg PO HS 03/25/24 03/25/24 History lisinopriL [Zestril] 20 mg PO DAILY 03/25/24 03/25/24 History Allergies Allergy/AdvReac Type Severity Reaction Status Date / Time No Known Allergies Allergy Verified 03/25/24 13:33 Physical Examination - Vital Signs Vital Signs: Vital Signs Temp Pulse Resp BP Pulse Ox 03/26/24 12:31 77 16 135/85 96 03/26/24 11:02 70 16 136/82 97 03/26/24 07:37 75 16 154/93 95 03/26/24 06:31 66 16 144/83 97 03/25/24 22:45 72 16 149/84 99 03/25/24 20:44 87 16 151/94 95 03/25/24 18:15 97.6 F 77 16 147/85 93 L 03/25/24 16:10 66 17 189/95 94 L GENERAL: The patient is lying in bed and is not in acute distress. NEUROLOGICAL: Higher mental function: The patient is awake, alert, oriented to self, place and time. Patient is following commands. No aphasia and no neglect. Cranial nerves: The pupils are round, equal and reactive to light and accommodation. Visual murillo are full to confrontation throughout. Extraocular movement is intact no nystagmus is noted. Facial sensation is normal to touch throughout. The facial strength is normal throughout. Hearing is normal bilaterally to hand rub. Tongue is midline and moved [id number] without any difficulty. No dysarthria is noted. Shoulder shrug is normal bilaterally. Motor: Gait is normal. The strength is 5 over 5 throughout. Normal tone and bulk. Cerebellum: Normal finger to nose bilaterally. Sensation: Sensation is normal to touch throughout. Reflexes (right/left): 2+ Plantars are downgoing bilaterally. Results - Laboratory Findings CBC and BMP: 03/25/24 13:28 03/25/24 13:28 Abnormal Lab Findings: Abnormal Labs 03/25/24 03/25/24 13:28 13:28 PT 9.9 L BUN 18 H Calcium 10.4 H Alkaline Phosphatase 157 H Assessment and Plan Assessment: This is a 63-year-old woman with history of TIA and she stated that she had weakness in 2012 and was told she had TIA, tobacco use, hypertension who presents because of paresthesia of the left upper extremity from the elbow down to her fingertip since this past Tuesday. Acute paresthesia of the left upper extremity likely due to acute ischemic stroke. NIH stroke scale is a 0 but patient continues to feel that she has still paresthesia. I would assume patient has lacunar stroke or small stroke due to patient risk factors: hypertension, previous TIA/stroke and tobacco use). No IV thrombolytic since outside the window and the risk outweigh the benefit as well as low NIH stroke scale. Lacunar strokes over the bilateral basal ganglia on the CT of the head/patient states she was told that she had TIA in 2012 and she had weakness over the right side Hypertension Tobacco use Plan: I ordered MRI of the brain, 2D echo, lipid panel, hemoglobin A1c, TSH Patient was given aspirin 324 mg once in the ED once. I resumed patient's home dose of aspirin 325 daily in addition start the patient on Plavix 75 mg daily. Patient failed her home aspirin since she continues to have symptoms. Recommend the patient to be on dual antiplatelet for 21 days and after 21 days stop aspi rin but continue Plavix indefinitely. I started the patient on Lipitor 40 mg nightly for secondary stroke prophylaxis. Continue neurochecks Cardiac monitoring Patient was counseled on tobacco cessation Consulted PT and OT Patient was also counseled on monitoring her blood pressure at home as well as controlling her blood pressure. Will defer the rest of the medical management to the primary team For DVT prophylaxis patient is on subcu heparin 5000 units every 12 hours Upon discharge recommend the patient to follow-up with a neurologist as an outpatient within 2 weeks Thank you for the consultation Time with Patient: Greater than 30
[2024-03-26] MEDS: CLOPIDOGREL 75 MG TAB PO SCH (14:57)
[2024-03-26] MEDS: ASPIRIN 325 MG TAB PO SCH (14:57)
[2024-03-26] MEDS: ATORVASTATIN 40 MG TAB PO SCH (20:18)
--- NOTE | 2024-03-27 02:14 | PN ---
PROGRESS NOTE DATE OF SERVICE: 03/26/2024 SUBJECTIVE: This is a 63-year-old woman, who was admitted with numbness of the left hand, is being worked up for a stroke at this time. No chest pain. No palpitation. OBJECTIVE: VITAL SIGNS: Pulse is 77, blood pressure 135/85, respirations 16. CHEST: Clear to auscultation. ABDOMEN: Soft. NERVOUS SYSTEM: Nonfocal. LABORATORY DATA: Reviewed. ASSESSMENT: 1. Numbness of the left arm, possible acute transient ischemic attack, rule out acute stroke. 2. Hypertension. 3. Hyperlipidemia. 4. History of cerebrovascular accident. 5. Continued ongoing nicotine dependence. RECOMMENDATIONS: Recommend to continue current management and continue symptomatic treatment. Continue the stroke workup. Neurology consultation. Prognosis guarded. Further recommendations to follow. MMODL / IJN: [id number] /
[2024-03-27 03:00] LABS: Chol/HDL Ratio 3.91 Ratio
[2024-03-27 03:01] LABS: LDL Cholesterol,Calculated 118.5 mg/dL (0.0-131.0)
--- NOTE | 2024-03-27 10:05 | CA ---
Transthoracic Echo Report Name: Heide Camilo Age: 63 Gender: F : 1960 Exam Date: 03/27/2024 08:08 Exam Location: [facility] Ht (in): 65 Wt (lb): 155 Ordering Physician: Jamie Gracia MD Attending/Referring Phys: Director Cardiovascular Latesha Hammonds RDCS Procedure CPT: Indications: stroke Cardiac Hx: Technical Quality: Good Contrast 1: Agitated Saline Total Dose (mL): 9 Contrast 2: Total Dose (mL): MEASUREMENTS (Male / Female) Normal Values 2D ECHO LV Diastolic Diameter PLAX 4.4 cm 4.2 - 5.9 / 3.9 - 5.3 cm LV Systolic Diameter PLAX 2.6 cm IVS Diastolic Thickness 1.1 cm 0.6 - 1.0 / 0.6 - 0.9 cm LVPW Diastolic Thickness 1.1 cm 0.6 - 1.0 / 0.6 - 0.9 cm LV Relative Wall Thickness 0.5 RV Internal Dim ED PLAX 3.1 cm LA Systolic Diameter LX 2.8 cm 3.0 - 4.0 / 2.7 - 3.8 cm LV Diastolic Volume MOD 4C 77.5 cm??? LV Systolic Volume MOD 4C 37.1 cm??? LV Ejection Fraction MOD 4C 52.1 % LV Cardiac Index MOD 4C 1340.5 cm???/min???m??? LV Diastolic Length 4C 7.4 cm LV Systolic Length 4C 6.1 cm LV Diastolic Volume MOD 2C 53.5 cm??? LV Systolic Volume MOD 2C 24.0 cm??? LV Ejection Fraction MOD 2C 55.0 % LV Cardiac Index MOD 2C 976.2 cm???/min???m??? LV Diastolic Length 2C 7.3 cm LV Systolic Length 2C 6.0 cm LA Volume 28.8 cm??? 18 - 58 / 22 - 52 cm??? LA Volume Index 15.9 cm???/m??? 16 - 28 cm???/m??? M-MODE Aortic Root Diameter MM 3.6 cm AV Cusp Separation MM 1.9 cm DOPPLER MV Area PHT 2.4 cm??? Mitral E Point Velocity 71.8 cm/s Mitral A Point Velocity 78.8 cm/s Mitral E to A Ratio 0.9 MV Deceleration Time 311.8 ms TR Peak Velocity 213.8 cm/s TR Peak Gradient 18.3 mmHg Right Ventricular Systolic Press 23.1 mmHg FINDINGS Left Ventricle Left ventricular ejection fraction is estimated at 55-60 %. Left ventricular cavity size normal. Mildly increased septal wall thickness. Mildly increased posterior wall thickness. Right Ventricle Normal right ventricular size and function. Right ventricular systolic pressure within normal limits. Right Atrium Normal right atrial size. No right atrial thrombus or mass seen. Negative agitated saline bubble study for right to left shunt. Left Atrium Normal left atrial size. No left atrial thrombus or mass present. Mitral Valve Structurally normal mitral valve. No mitral stenosis, regurgitation or prolapse. Aortic Valve Trileaflet aortic valve. No aortic valve stenosis or regurgitation. Tricuspid Valve Structurally normal tricuspid valve. Mild tricuspid regurgitation. Pulmonic Valve Structurally normal pulmonic valve. Trace pulmonic regurgitation. Pericardium No pericardial or pleural effusion. Aorta Normal size aortic root and proximal ascending aorta. CONCLUSIONS Normal biventricular systolic function Normal pulmonary artery systolic pressure No significant valvular abnormalities noted No pericardial effusion Negative bubble/contrast study Previewed by: Dr. Cong Parrish MD (Electronically Signed) Final Date: 27 March 2024 10:04
--- NOTE | 2024-03-27 11:20 | P.PN ---
Subjective This is a pleasant 63 years old female who presents initially because of left arm/forearm numbness since Tuesday. No associated weakness. No headache dizziness blurred vision or slurred speech. Patient denies any other new complaint Also she denies chest pain or dyspnea. No GI/ symptom. She denies smoking alcohol or illicit drugs. Patient eager to go home today. Patient was informed that workup still pending include MRI and she agrees. She is hemodynamically stable Labs including CBC, BMP, LFT, INR, troponin were unremarkable TSH is 1.9 Chest x-ray showed no acute pulmonary process CT of the head and neck showing no infarction MRI of the brain is pending Echocardiogram done this morning showed ejection fraction 55 to 60% Objective - Vital Signs Vital signs: Vital Signs Temp 98.1 F 03/27/24 09:28 Pulse 78 03/27/24 09:28 Resp 17 03/27/24 09:28 BP 170/97 03/27/24 09:28 Pulse Ox 95 03/27/24 09:28 FiO2 Intake & Output 03/26/24 03/27/24 03/27/24 18:59 06:59 18:59 Intake Total 240 180 Balance 240 180 Weight 68.946 kg Intake: Oral 240 180 Other: Voiding Method Toilet Toilet # Voids 1 2 - Labs CBC & Chem 7: 03/25/24 13:28 03/25/24 13:28 Labs: Abnormal Lab Results - Last 24 Hours (Table) 03/26/24 Range/Units 15:17 Triglycerides 163.00 H (0.00-149.00) mg/dL Cholesterol 203.00 H (0.00-200.00) mg/dL
--- NOTE | 2024-03-27 15:52 | P.PN ---
Subjective Progress Note Date: 03/27/24 I am following-up with patient and she feels about the same and denies any new neurological issues. She states she does not want to wait till for MRI. Objective - Vital Signs Vital signs: Vital Signs Temp 98.1 F 03/27/24 09:28 Pulse 71 03/27/24 15:22 Resp 16 03/27/24 15:22 BP 159/83 03/27/24 15:22 Pulse Ox 95 03/27/24 15:22 FiO2 Intake & Output 03/26/24 03/27/24 03/27/24 18:59 06:59 18:59 Intake Total 240 360 Balance 240 360 Weight 68.946 kg Intake: Oral 240 360 Other: Voiding Method Toilet Toilet # Voids 1 2 - Exam GENERAL: The patient is lying in bed and is not in acute distress. NEUROLOGICAL: Higher mental function: The patient is awake, alert, oriented to self, place and time. Patient is following commands. No aphasia and no neglect. Cranial nerves: The pupils are round, equal and reactive to light and accommodation. Visual murillo are full to confrontation throughout. Extraocular movement is intact no nystagmus is noted. Facial sensation is normal to touch throughout. The facial strength is normal throughout. Hearing is normal bilaterally to hand rub. Tongue is midline and moved [id number] without any difficulty. No dysarthria is noted. Shoulder shrug is normal bilaterally. Motor: Gait is normal. The strength is 5 over 5 throughout. Normal tone and bulk. Cerebellum: Normal finger to nose bilaterally. Sensation: Sensation is normal to touch throughout. Reflexes (right/left): 2+ Plantars are downgoing bilaterally. Some of the workup during this hospital visit consisted of: Lipid panel: Triglycerides 163, cholesterol 203, LDL 218 and HDL is 51 TSH is 1.97. Hemoglobin A1c is 5.7. CT of the head is reported as no acute intracranial process. 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 I personally reviewed the CT and I agree there is no appreciable acute or subacute stroke but I feel the patient has bilateral lacunar stroke over the basal ganglia CT Angiography of the head and neck is reported as no evidence of dissection of cervical internal carotid artery or vertebral artery. No evidence of any significant stenosis at the carotid bifurcation. No evidence of intracranial high-grade stenosis or intracranial aneurysm. 2D echo: Is jj systolic function. Negative bubble study. No significant valvular abnormality noted. - Labs CBC & Chem 7: 03/25/24 13:28 03/25/24 13:28 Labs: Abnormal Lab Results - Last 24 Hours (Table) 03/26/24 Range/Units 15:17 Triglycerides 163.00 H (0.00-149.00) mg/dL Cholesterol 203.00 H (0.00-200.00) mg/dL Assessment and Plan Assessment: This is a 63-year-old woman with history of TIA and she stated that she had weakness in 2012 and was told she had TIA, tobacco use, hypertension who presents because of paresthesia of the left upper extremity from the elbow down to her fingertip since this past Tuesday. Acute paresthesia of the left upper extremity likely due to acute ischemic stroke. NIH stroke scale is a 0 but patient continues to feel that she has st ill paresthesia. I would assume patient has lacunar stroke or small stroke due to patient risk factors: hypertension, previous TIA/stroke and tobacco use). No IV thrombolytic since outside the window and the risk outweigh the benefit as well as low NIH stroke scale. Lacunar strokes over the bilateral basal ganglia on the CT of the head/patient states she was told that she had TIA in 2012 and she had weakness over the right side Hypertension Tobacco use Plan: It seems MRI the brain is scheduled to be completed this since MRI is backed up but patient does not want to stay till and wants to be discharged because of the holiday and come back for the MRI. I notified the patient that her which cannot be granted and if she chooses she can leave [facility]. Patient was given aspirin 324 mg once in the ED once. I resumed patient's home dose of aspirin 325 daily in addition start the patient on Plavix 75 mg daily. Patient failed her home aspirin since she continues to have symptoms. Recommend the patient to be on dual antiplatelet for 21 days and after 21 days stop aspirin but continue Plavix indefinitely. I started the patient on Lipitor 40 mg nightly for secondary stroke prophylaxis. Continue neurochecks Cardiac monitoring Patient was counseled on tobacco cessation Consulted PT and OT Patient was also counseled on monitoring her blood pressure at home as well as controlling her blood pressure. Will defer the rest of the medical management to the primary team For DVT prophylaxis patient is on subcu heparin 5000 units every 12 hours Upon discharge recommend the patient to follow-up with a neurologist as an outpatient within 2 weeks The plan is discussed with patient and her nurse. Time with Patient: Less than 30
[2024-03-27] MEDS: hydrALAZINE HCL 50 MG TAB PO SCH (23:26)
[2024-03-28] MEDS: ALPRAZolam 0.25 MG TAB PO PRN (03:15)
--- NOTE | 2024-03-28 23:48 | P.PN ---
Subjective Progress Note Date: 03/28/24 She denies dizziness, vision change, chest pain or shortness of breath. she feels her paresthesia is now feeling more like pins and needles. MRI pending. Objective - Vital Signs Vital signs: Vital Signs Temp 97.9 F 03/28/24 21:10 Pulse 88 03/28/24 21:10 Resp 18 03/28/24 21:10 BP 145/83 03/28/24 21:10 Pulse Ox 96 03/28/24 21:10 FiO2 Intake & Output 03/28/24 03/28/24 03/29/24 06:59 18:59 06:59 Intake Total 10 Balance 10 Weight 67.8 kg Intake: IV 10 Invasive Line 1 10 Other: Voiding Method Toilet Toilet - Exam Gen: well developed, well nourished NAD CV: RRR, no murmur Lungs: CTAB - Labs CBC & Chem 7: 03/25/24 13:28 03/25/24 13:28 Assessment and Plan Plan: Continue to closely monitor, await MRI per neurology. Continue with ASA and st atin
[2024-03-28 23:51] VITALS: RESP 16
[2024-03-29 04:38] VITALS: TEMP 97.9
--- NOTE | 2024-03-29 10:19 | MR ---
EXAMINATION TYPE: MR brain wo con DATE OF EXAM: 03/29/2024 10:11 AM COMPARISON: CT brain CLINICAL INDICATION: Female, 63 years old with history of stroke. left arm numbness, lt arm numbness TECHNIQUE: Multiplanar, multiecho imaging on a 3.0 Ashley magnet is performed through the brain. Stud y is performed within 24 hours of arrival to the hospital.Multiplanar, multiecho imaging on a 3.0 Marilyn la magnet is performed through the knee. IV Contrast: mL (None, if empty) FINDINGS: The craniovertebral junction is normal. The pituitary is normal. Optic chiasm appears normal Diffusion-weighted imaging is performed. No abnormal hyperintensity is present to suggest an acute i ntracranial infarct or acute ischemic change. There are a few scattered hyperintensities on T2 and inversion recovery weighted sequences. Findings are nonspecific but can be related to chronic white matter ischemic changes. Ventricles and sulci are appropriate for the patient age. IMPRESSION: 1. Patchy bilateral chronic appearing periventricular white matter ischemic changes. 2. No acute intracranial process. [facility], , 03/29/2024 10:17 AM
[2024-03-29 12:00] VITALS: BP 124/69; PULSE 97
--- NOTE | 2024-03-29 14:46 | P.PN ---
Subjective Progress Note Date: 03/29/24 I am following up with the patient and she feels drastically better compared to initial presentation. Denies of any new neurological issues. Patient had MRI of the brain which was unremarkable for any acute or subacute process. Objective - Vital Signs Vital signs: Vital Signs Temp 97.9 F 03/29/24 04:30 Pulse 97 03/29/24 11:59 Resp 16 03/29/24 11:59 BP 124/69 03/29/24 11:59 Pulse Ox 96 03/29/24 04:30 FiO2 Intake & Output 03/28/24 03/29/24 03/29/24 18:59 06:59 18:59 Intake Total 20 550 Balance 20 550 Intake: IV 20 10 Invasive Line 1 20 10 Oral 540 Other: Voiding Method Toilet Toilet # Voids 1 - Exam GENERAL: The patient is lying in bed and is not in acute distress. NEUROLOGICAL: Higher mental function: The patient is awake, alert, oriented to self, place and time. Patient is following commands. No aphasia and no neglect. Cranial nerves: The pupils are round, equal and reactive to light and accommodation. Visual murillo are full to confrontation throughout. Extraocular movement is intact no nystagmus is noted. Facial sensation is normal to touch throughout. The facial strength is normal throughout. Hearing is normal bilaterally to hand rub. Tongue is midline and moved [id number] without any difficulty. No dysarthria is noted. Shoulder shrug is normal bilaterally. Motor: Gait is normal. The strength is 5 over 5 throughout. Normal tone and bulk. Cerebellum: Normal finger to nose bilaterally. Sensation: Sensation is normal to touch throughout. Reflexes (right/left): 2+ Plantars are downgoing bilaterally. Some of the workup during this hospital visit consisted of: Lipid panel: Triglycerides 163, cholesterol 203, LDL 218 and HDL is 51 TSH is 1.97. Hemoglobin A1c is 5.7. CT of the head is reported as no acute intracranial process. 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 I personally reviewed the CT and I agree there is no appreciable acute or subacute stroke but I feel the patient has bilateral lacunar stroke over the basal ganglia CT Angiography of the head and neck is reported as no evidence of dissection of cervical internal carotid artery or vertebral artery. No evidence of any significant stenosis at the carotid bifurcation. No evidence of intracranial high-grade stenosis or intracranial aneurysm. 2D echo: Is jj systolic function. Negative bubble study. No significant valvular abnormality noted. MRI of the brain is reported as patchy bilateral chronic appearing periventricular white matter ischemic changes. No acute intracranial process. - Labs CBC & Chem 7: 03/25/24 13:28 03/25/24 13:28 Assessment and Plan Assessment: This is a 63-year-old woman with history of TIA and she stated that she had weakness in 2012 and was told she had TIA, tobacco use, hypertension who presents because of paresthesia of the left upper extremity from the elbow down to her fingertip since this past Tuesday. Likely transient ischemic attack the patient had left upper extremity paresthesia. Her symptoms has resolved. NIH stroke scale is 0. MRI of the brain is negative for any acute or subacute stroke. Patient risk factors: hypertension, previous TIA/stroke and tobacco use). No IV thrombolytic since outside the window and the risk outweigh the benefit as well as low NIH stroke scale. Lacunar strokes over the bilateral basal ganglia on the CT of the head/patient states she was told that she had TIA in 2012 and she had weakness over the right side Hypertension Tobacco use Plan: Patient was given aspirin 324 mg once in the ED once. I resumed patient's home dose of aspirin 325 daily in addition start the patient on Plavix 75 mg daily. Patient failed her home aspirin since she continues to have symptoms. Recommend the patient to be on dual antiplatelet for 21 days and after 21 days stop aspirin but continue Plavix indefinitely. I started the patient on Lipitor 40 mg nightly for secondary stroke prophylaxis. Continue neurochecks Cardiac monitoring Patient was counseled on tobacco cessation Consulted PT and OT Patient was also counseled on monitoring her blood pressure at home as well as controlling her blood pressure. Will defer the rest of the medical management to the primary team For DVT prophylaxis patient is on subcu heparin 5000 units every 12 hours Upon discharge recommend the patient to follow-up with a neurologist as an outpatient within 2 weeks The plan is discussed with patient and her nurse. There is no further neurological workup. Will sign off. Please reconsult if needed. Time with Patient: Less than 30
== END 2024-03-29 14:25 | disposition home or self-care (01) | DRG 69 ==
LOC: EC 12:19 → 3SCARD 14:39
PROVIDERS: ADMIT Family Medicine; ATTEND Family Medicine
DX: G45.9 Transient cerebral ischemic attack, unspecified (principal); I10 Essential (primary) hypertension; E78.5 Hyperlipidemia, unspecified; H53.8 Other visual disturbances; F17.210 Nicotine dependence, cigarettes, uncomplicated; R53.1 Weakness; R29.700 NIHSS score 0; Z71.6 Tobacco abuse counseling; Z79.82 Long term (current) use of aspirin; Z79.899 Other long term (current) drug therapy; Z86.73 Personal history of transient ischemic attack (TIA), and cerebral infarction without residual deficits
CPT/HCPCS: 36415; 70450; 70496; 70498; 70551; 71046; 80053; 80061; 83036; 83735; 84443; 84484; 85025; 85610; 85730; 93005; 93306; 96372; 99285